=== PATIENT | female | born 1985 | race African-American/Black ===

== ENCOUNTER 2017-05-27 22:59 | Emergency (ER) | payer SELFPAY ==
[2017-05-28] MEDS ORDERED: NORMAL SALINE 1000 ML 1,000 ML IV ONE (01:33)
[2017-05-28 02:32] LABS: A TYPE INFLUENZA AG NEGATIVE (NEGATIVE); B INFLUENZA AG NEGATIVE (NEGATIVE)
--- NOTE | 2017-05-28 03:07 | RADIOLOGY REPORT (SQ) ---
EXAM DESCRIPTION: CHEST PA/LAT COMPLETED DATE/TIME: 05/28/2017 2:35 am REASON FOR STUDY: cough COMPARISON: Chest x-ray 02/22/2014. EXAM PARAMETERS: NUMBER OF VIEWS: two views TECHNIQUE: Digital Frontal and Lateral radiographic views of the chest acquired. RADIATION DOSE: NA LIMITATIONS: none FINDINGS: LUNGS AND PLEURA: No consolidation, pneumothorax or pleural effusion. MEDIASTINUM AND HILAR STRUCTURES: No masses or contour abnormalities. HEART AND VASCULAR STRUCTURES: Heart normal size. No evidence for failure. BONES: No acute findings. HARDWARE: None in the chest. IMPRESSION: No acute radiographic finding in the chest. TECHNICAL DOCUMENTATION: JOB ID: [id number] [employer]- All Rights Reserved
[2017-05-28 03:35] LABS: ANION GAP 10 (5-19); BLOOD UREA NITROGEN 7 mg/dL (7-20); CARBON DIOXIDE 21 mmol/L (22-30); CHLORIDE 108 mmol/L (98-107); GLUCOSE 98 mg/dL (75-110); POTASSIUM 4.1 mmol/L (3.6-5.0); SODIUM 139.3 mmol/L (137-145)
[2017-05-28 03:55] LABS: HEMATOCRIT 36.1 % (36.0-47.0); HEMOGLOBIN 11.5 g/dL (12.0-15.5); MEAN CORPUSCULAR HEMOGLOBIN 22.8 pg (27.0-33.4); MEAN CORPUSCULAR HGB CONC 31.9 g/dL (32.0-36.0); MEAN CORPUSCULAR VOLUME 71 fl (80-97); PLATELET COUNT 210 10^3/uL (150-450); RED BLOOD COUNT 5.05 10^6/uL (3.72-5.28); RED CELL DISTRIBUTION WIDTH 14.9 % (11.5-14.0); WHITE BLOOD COUNT 5.6 10^3/uL (4.0-10.5)
[2017-05-28 03:58] LABS: ABSOLUTE LYMPHOCYTES# (MANUAL) 0.1 10^3/uL (0.5-4.7); ABSOLUTE MONOCYTES # (MANUAL) 0.1 10^3/uL (0.1-1.4); ABSOLUTE NEUTROPHILS# (MANUAL) 5.4 10^3/uL (1.7-8.2); BAND NEUTROPHILS % (MANUAL) 1 % (3-5); BASOPHILS % (MANUAL) 0 % (0-2); EOSINOPHILS % (MANUAL) 0 % (0-6); LYMPHOCYTES % (MANUAL) 1 % (13-45); MONOCYTES % (MANUAL) 2 % (3-13); SEGMENTED NEUTROPHILS % (MAN) 96 % (42-78); TOTAL CELLS COUNTED 100
[2017-05-28 03:59] LABS: HYPOCHROMASIA SLIGHT; OVALOCYTES SLIGHT; PLATELET COMMENT ADEQUATE; POIKILOCYTOSIS SLIGHT; TEAR DROP CELLS SLIGHT; TOXIC GRANULATION 1+
--- NOTE | 2017-05-28 04:07 | ER Document Report ---
ED General - General Chief Complaint: Flu Symptoms Stated Complaint: CHEST TIGHTNESS Time Seen by Provider: 05/28/17 01:29 TRAVEL OUTSIDE OF THE [place] IN LAST 30 DAYS: No - Related Data Allergies/Adverse Reactions: sulfamethoxazole [From Bactrim] Allergy (Verified 02/01/14 04:55) trimethoprim [From Bactrim] Allergy (Verified 02/01/14 04:55) Past Medical History - Social History Smoking Status: Never Smoker Chew tobacco use (# tins/day): No Frequency of alcohol use: None Drug Abuse: None Family History: CAD, Hyperlipidemia, Hypertension Patient has suicidal ideation: No Patient has homicidal ideation: No Renal/ Medical History: Denies: Hx Peritoneal Dialysis - Immunizations Immunizations up to date: Yes Hx Diphtheria, Pertussis, Tetanus Vaccination: Yes Physical Exam - Vital signs Vitals: Temp Pulse Resp BP Pulse Ox 99.8 F 117 H 16 115/66 98 05/27/17 23:58 05/27/17 23:58 05/27/17 23:58 05/27/17 23:58 05/27/17 23:58 Course - Re-evaluation Re-evalutation: 05/28/17 04:06 She continues to clinically looks very well. She said she feels improved after the IV fluids. She has full range of motion of her neck without any signs of meningismus. She is awake alert and oriented. She looks well. I do not think she needs lumbar puncture. Her lung moody are clear and her chest x-ray is negative. She has had some runny nose cough and congestion. The suggest that she probably is a viral illness. Her flu swabs are negative. I informed her that she needs to take Tylenol or Motrin for fever control. I encourage her drink clear liquids and non-caffeinated liquids for the next several days to help prevent dehydration. I informed her that she should return to ER immediately if she feels that she is worsening in any way, has difficulty breathing, high fevers, or has further concerns. Patient agrees with plan and will be discharged home. Dictation of this chart was performed using voice recognition software; therefore, there may be some unintended grammatical errors. - Vital Signs Vital signs: Temp Pulse Resp BP Pulse Ox 99.8 F 117 H 22 H 98/60 L 97 05/27/17 23:58 05/27/17 23:58 05/28/17 03:01 05/28/17 03:01 05/28/17 03:01 - Laboratory Result Diagrams: 05/28/17 03:11 05/28/17 03:11 Laboratory results interpreted by me: 05/28/17 05/28/17 03:11 03:11 Hgb 11.5 L MCV 71 L MCH 22.8 L MCHC 31.9 L RDW 14.9 H Seg Neuts % (Manual) 96 H Band Neutrophils % 1 L Lymphocytes % (Manual) 1 L Monocytes % (Manual) 2 L Abs Lymphs (Manual) 0.1 L Chloride 108 H Carbon Dioxide 21 L Discharge - Discharge Clinical Impression: Cough URI (upper respiratory infection) Qualifiers: URI type: unspecified URI Qualified Code(s): J06.9 - Acute upper respiratory infection, unspecified Condition: Good Disposition: HOME, SELF-CARE Additional Instructions: I suspect you have a viral illness. Your chest x-ray did not show evidence of pneumonia. Flu swab was negative. Please have a low threshold to return to the ER if you have severe headache, neck stiffness, recurrent vomiting, difficulty breathing, or feel that you are worsening. Please drink caffeinated liquids over the next several days to keep from becoming dehydrated. If you feel that you are worsening or becoming dehydrated he should return to ER immediately.
[2017-05-28 04:18] VITALS: BP 107/67
== END 2017-05-28 04:45 | disposition home or self-care (01) ==
LOC: ER 22:59
DX: J06.9 Acute upper respiratory infection, unspecified (principal); R07.9 Chest pain, unspecified; R05 Cough
CPT/HCPCS: 99284; 36415; 85025; 80048; 87804; 71046; J7030

== ENCOUNTER 2018-06-01 23:19 | Emergency (ER) | payer BC ==
--- NOTE | 2018-06-02 03:06 | ER Document Report ---
ED Medical Screen (RME) - General Chief Complaint: Flank Pain Stated Complaint: LEFT FLANK PAIN Notes: Patient is a 33-year-old -Portuguese female coming in today with left-sided low back pain. She thinks it might be a urinary tract infection. However, does not have the usual UTI symptoms. No history of kidney stones in the past. I have treated and performed a rapid initial assessment of this patient. A comprehensive ED assessment and evaluation of the patient, analysis of test results and completion of medical decision making process will be conducted by additional ED providers. PHYSICAL EXAMINATION: GENERAL: Well-appearing, well-nourished and in no acute distress. A&Ox4. Answers questions appropriately. LUNGS: Breath sounds clear to auscultation bilaterally and equal. No wheezes rales or rhonchi. HEART: Regular rate and rhythm without murmurs, rubs, gallops. ABDOMEN: Soft, nondistended abdomen. No guarding, no rebound. Normal bowel sounds present. No CVA tenderness bilaterally. + mild epigastric tenderness (cannot elicit thorough abd exam w/o table, however). Extremities: No cyanosis, clubbing, or edema b/l. NEUROLOGICAL: Normal speech, normal gait. PSYCH: Normal mood, normal affect. TRAVEL OUTSIDE OF THE [place] IN LAST 30 DAYS: No - Related Data Allergies/Adverse Reactions: sulfamethoxazole [From Bactrim] Allergy (Verified 06/01/18 23:33) trimethoprim [From Bactrim] Allergy (Verified 06/01/18 23:33) Past Medical History Renal/ Medical History: Denies: Hx Peritoneal Dialysis - Immunizations Immunizations up to date: Yes Hx Diphtheria, Pertussis, Tetanus Vaccination: Yes Physical Exam - Vital signs Vitals: Temp Pulse Resp BP Pulse Ox 98.3 F 93 18 137/78 H 99 06/01/18 23:32 06/01/18 23:32 06/01/18 23:32 06/01/18 23:32 06/01/18 23:32 Course - Vital Signs Vital signs: Temp Pulse Resp BP Pulse Ox 98.3 F 93 18 137/78 H 99 06/01/18 23:32 06/01/18 23:32 06/01/18 23:32 06/01/18 23:32 06/01/18 23:32
[2018-06-02 03:21] LABS: APPEARANCE,URINE SLIGHTLY-CLOUDY; BILIRUBIN,URINE NEGATIVE (NEGATIVE); COLOR,URINE STRAW; GLUCOSE, URINE NEGATIVE (NEGATIVE); KETONES,URINE NEGATIVE (NEGATIVE); LEUKOCYTE ESTERASE,URINE NEGATIVE (NEGATIVE); NITRITE,URINE NEGATIVE (NEGATIVE); PROTEIN,URINE NEGATIVE (NEGATIVE); URINE SPECIFIC GRAVITY 1.006; UROBILINOGEN,URINE NEGATIVE mg/dL (<2.0)
--- NOTE | 2018-06-02 04:10 | ER Document Report ---
ED General - General Chief Complaint: Flank Pain Stated Complaint: LEFT FLANK PAIN Time Seen by Provider: 06/02/18 03:14 Mode of Arrival: Ambulatory Information source: Patient TRAVEL OUTSIDE OF THE [place] 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 Associated symptoms: denies: Chills, Fever Exacerbated by: Movement, Other - bending and stooping Relieved by: Denies Similar symptoms previously: No Recently seen / treated by doctor: No - Related Data Allergies/Adverse Reactions: sulfamethoxazole [From Bactrim] Allergy (Verified 06/01/18 23:33) trimethoprim [From Bactrim] Allergy (Verified 06/01/18 23:33) Past Medical History - General Information source: Patient - Social History Smoking Status: Never Smoker Chew tobacco use (# tins/day): No Drug Abuse: None Family History: CAD, Hyperlipidemia, Hypertension Patient has suicidal ideation: No Patient has homicidal ideation: No Renal/ Medical History: Denies: Hx Peritoneal Dialysis - Immunizations Immunizations up to date: Yes Hx Diphtheria, Pertussis, Tetanus Vaccination: Yes Review of Systems - Review of Systems Constitutional: denies: Chills, Fever EENT: No symptoms reported Cardiovascular: No symptoms reported Respiratory: No symptoms reported Gastrointestinal: denies: Abdominal pain, Nausea, Vomiting Genitourinary: No symptoms reported Female Genitourinary: No symptoms reported Musculoskeletal: Back pain Skin: No symptoms reported Hematologic/Lymphatic: No symptoms reported Neurological/Psychological: No symptoms reported -: Yes All other systems reviewed and negative Physical Exam - Vital signs Vitals: Temp Pulse Resp BP Pulse Ox 98.3 F 93 18 137/78 H 99 06/01/18 23:32 06/01/18 23:32 06/01/18 23:32 06/01/18 23:32 06/01/18 23:32 - General General appearance: Appears well, Alert In distress: None - HEENT Head: Normocephalic, Atraumatic Eyes: Normal Conjunctiva: Normal Extraocular movements intact: Yes Eyelashes: Normal Pupils: PERRL Ears: Normal External canal: Normal Tympanic membrane: Normal Pharynx: Normal Neck: Normal - Respiratory Respiratory status: No respiratory distress Chest status: Nontender Breath sounds: Normal Chest palpation: Normal - Cardiovascular Rhythm: Regular Heart sounds: Normal auscultation Murmur: No - Abdominal Inspection: Normal Distension: No distension Bowel sounds: Normal Tenderness: Nontender - Back Back: Other - Left lower back roller to palpate. No midline tenderness or step- off - Extremities Notes: Atraumatic. Moves all extremities well - Neurological Neuro grossly intact: Yes - Psychological Associated symptoms: Normal affect, Normal mood - Skin Skin Temperature: Warm Skin Moisture: Dry Skin Color: Normal Skin irregularity: negative: Rash Course - Re-evaluation Re-evalutation: 06/02/18 04:08 Patient's urinalysis is negative. Definitely not a UTI and based on her physical and history, does not appear to be a kidney stone. Pain is reproducible with a history of lifting. We will go ahead and treat this as a musculoskeletal back pain. Have her follow-up as needed. - Vital Signs Vital signs: Temp Pulse Resp BP Pulse Ox 98.3 F 93 18 137/78 H 99 06/01/18 23:32 06/01/18 23:32 06/01/18 23:32 06/01/18 23:32 06/01/18 23:32 Discharge - Discharge Clinical Impression: Back pain Qualifiers: Back pain location: low back pain Chronicity: acute Back pain laterality: left Sciatica presence: without sciatica Qualified Code(s): M54.5 - Low back pain Disposition: HOME, SELF-CARE Instructions: Low Back Pain ([facility]) Prescriptions: Cyclobenzaprine HCl [Flexeril 5 mg Tablet] 5 mg PO TID #15 tablet Naproxen 500 mg PO BID 5 Days #10 tablet
[2018-06-02] MEDS ORDERED: LIDOCAINE 5% (700 MG) TRANSDERMAL ADH..PATCH TP ONE (04:37)
[2018-06-02 05:15] VITALS: BP 135/89
== END 2018-06-02 04:56 | disposition home or self-care (01) ==
LOC: ER 23:19
DX: M54.5 Low back pain (principal); R10.9 Unspecified abdominal pain
CPT/HCPCS: 81001; 81025; 99284

== ENCOUNTER 2018-09-27 07:34 | Emergency (ER) | payer BC ==
[2018-09-27 07:50] VITALS: BP 145/85
--- NOTE | 2018-09-27 09:25 | RADIOLOGY REPORT (SQ) ---
EXAM DESCRIPTION: ANKLE LEFT COMPLETE COMPLETED DATE/TIME: 09/27/2018 9:09 am REASON FOR STUDY: ankle injury COMPARISON: None. NUMBER OF VIEWS: Three views. TECHNIQUE: AP, lateral, and oblique radiographic images acquired of the left ankle. LIMITATIONS: None. FINDINGS: MINERALIZATION: Normal. BONES: No acute fracture or dislocation. No worrisome bone lesions. JOINTS: No effusions. SOFT TISSUES: No soft tissue swelling. No foreign body. OTHER: No other significant finding. IMPRESSION: NEGATIVE STUDY OF THE LEFT ANKLE. NO RADIOGRAPHIC EVIDENCE OF ACUTE INJURY. TECHNICAL DOCUMENTATION: JOB ID: [id number] [employer]- All Rights Reserved Reading location - IP/workstation name: [email or web address]
--- NOTE | 2018-09-27 10:24 | ER Document Report ---
HPI - HPI Patient complains to provider of: L ankle pain Time Seen by Provider: 09/27/18 10:02 Pain Level: 3 Context: Healthy well-appearing 33-year-old female presents to the emergency department with chief complaint of left Achilles pain. She said she was exercising on the treadmill about 4 days ago as she felt a little twinge. She did not roll her ankle, no trauma, no falls, no other injuries. She states that it is a slight discomfort that radiates up to her lower calf very slightly. She denies fevers or chills, she denies unilateral calf swelling, she denies redness of the leg, she denies shortness of breath or chest pain, she has a normal distal neurovascular exam. She has good range of motion. No other complaints. - REPRODUCTIVE Reproductive: DENIES: : - MUSCULOSKELETAL Musculoskeletal: REPORTS: Extremity pain - R ankle Past Medical History - Social History Smoking Status: Never Smoker Chew tobacco use (# tins/day): No Frequency of alcohol use: None Drug Abuse: None Family History: CAD, Hyperlipidemia, Hypertension Patient has suicidal ideation: No Patient has homicidal ideation: No Renal/ Medical History: Denies: Hx Peritoneal Dialysis - Immunizations Immunizations up to date: Yes Hx Diphtheria, Pertussis, Tetanus Vaccination: Yes Vertical Provider Document - CONSTITUTIONAL Notes: PHYSICAL EXAMINATION: Reviewed vital signs and charting by RN GENERAL: Alert, interacts well. No acute distress. HEAD: Normocephalic, atraumatic. EYES: Pupils equal, round, and reactive to light. Extraocular movements intact. EXTREMITIES: Moves all 4 extremities spontaneously. No edema, No cyanosis. Normal range of motion, normal distal neurovascular exam left extremity. PSYCH: Normal affect, normal mood. SKIN: Warm, dry, normal turgor. No rashes or lesions noted. - INFECTION CONTROL TRAVEL OUTSIDE OF THE [place] IN LAST 30 DAYS: No Course - Re-evaluation Re-evalutation: 09/27/18 10:28 PERC negative. Most likely a calf strain or a minor Achilles strain. Negative [place]'s test. Patient is stable for discharge. - Vital Signs Vital signs: Temp Pulse Resp BP Pulse Ox 98.5 F 97 16 145/85 H 99 09/27/18 07:48 09/27/18 07:48 09/27/18 07:48 09/27/18 07:48 09/27/18 07:48 Discharge - Discharge Clinical Impression: Strain of Achilles tendon Qualifiers: Encounter type: initial encounter Laterality: left Qualified Code(s): S86.012A - Strain of left Achilles tendon, initial encounter Condition: Good Disposition: HOME, SELF-CARE Additional Instructions: You are seen in the emergency department this morning for what is most likely a minor strain of your calf and/or Achilles tendon. Your physical exam was very reassuring and I have no concerns for serious injury that would require orthopedic follow-up. You can take Motrin 600 mg every 6 hours with food or milk and/or Tylenol 1000 mg every 6 hours for pain for the next few days to see if the pain subsides. Sometimes, though, Achilles injuries are persistent and can take a while to resolve. You should continue with normal activity but do not over exert yourself with exercise until the pain goes away. If you develop severe pain in your calf, unilateral swelling of your calf, severe redness, fever, or any other concerning symptoms please return to the emergency department.
== END 2018-09-27 10:33 | disposition home or self-care (01) ==
LOC: ER 07:34
DX: S86.012A Strain of left Achilles tendon, initial encounter (principal); X58.XXXA Exposure to other specified factors, initial encounter; Y93.A1 Activity, exercise machines primarily for cardiorespiratory conditioning
CPT/HCPCS: 99283